=== PATIENT | female | born 1965 | race African-American/Black ===

== ENCOUNTER 2023-07-18 18:05 | Emergency (ER) | payer OTHER ==
[~2023-07-18] VITALS: Ht 172.7 cm; Wt 93.9 kg
[2023-07-18 18:09] VITALS: BP 172/106; PULSE 101; RESP 20; TEMP 97.7; O2SAT 97
[2023-07-18] MEDS ORDERED: CETI10SG1 PO (18:25)
[2023-07-18] MEDS ORDERED: METH4TAB1 PO (18:25)
[2023-07-18] MEDS ORDERED: FAMO-90 PO (18:25)
[2023-07-18 18:37] VITALS: BP 161/91; PULSE 94; RESP 20; TEMP 98.1; O2SAT 97
== END 2023-07-18 18:36 | disposition home or self-care (01) ==
LOC: MED 18:05
DX: L50.9 Urticaria, unspecified (principal); R03.0 Elevated blood-pressure reading, without diagnosis of hypertension; Z79.899 Other long term (current) drug therapy
CPT/HCPCS: 99283